=== PATIENT | male | born 1950 | race Caucasian/White ===

== ENCOUNTER → 2019-07-08 08:17 | Outpatient (BNVA) | payer MEDICARE, SELFPAY | PROVIDERS: Family Provider Nurse Practitioner Family; PCP Nurse Practitioner Family; Visit Provider Internal Medicine Hematology & Oncology | DX: C61 Malignant neoplasm of prostate (principal) | CPT/HCPCS: 80053; 84153; 84403 ==

== ENCOUNTER 2019-07-13 13:40 | Outpatient (CLI) | payer MEDICARE, SELFPAY ==
[2019-07-13] MEDS: lidocaine 1% INJ 20 mL INJECTION (14:42)
[2019-07-13] MEDS: goserelin acetate 10.8 mg Implant IM (14:55)
--- NOTE | 2019-07-13 16:11 | ONC FU_ITS ---
Dr. Thompson follow up note Patient: Jeffry Neff Unit #: [id number]: 1950 Dicatated By: Grace Thompson M.D.Date of Visit:Jul 13, 2019 Onc Med Follow-up/Prog Note History of Present Illness: Mr. 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 As per patient he was having problem with dysuria and recurrent urine tract infection eventually urinary retention for which he was evaluated by Dr. Matthews and patient underwent TURSP/biopsy and Foleys cath placement. He was started on Casodex 50 mg by mouth daily on 11/14/2017. Since then he is feeling better and still has Foleys cath. No history of hematuria, but recurrent urine tract infections and his last PSA on 11/07/2017 was 7.[address] scan of abdomen pelvis on 11/06/2017 which showed markedly enlarged prostate gland 7 x 6.4 cm no pelvic lymphadenopathy or bone destruction. Bone scan was done on 11/12/2017 showed no abnormality. Treated with neoadjuvant ADT with Zoladex/Casodex on 11/14/2017 concurrent radiation therapy was elevated on 02/11/2018 till 04/13/2018, now on adjuvant ADT. Casodex discontinued on 06/04/2018 Came for follow-up, denies any specific complaints except episode of jock itch responded well to [id number] antifungal. No fever or chills no nausea or vomiting no diarrhea constipation tolerating Zoladex well except occasionally hot flashes. Medications: Aspirin 1 Tablet (of 81 mg) Oral daily, Clopidogrel Bisulfate 1 Tablet (of 75 mg) Oral daily, MetFORMIN HCl 2 Tablet (of 500 mg) Oral daily, Metoprolol Tartrate 1 Tablet (of 50 mg) Oral b.i.d., Simvastatin 1 Tablet (of 40 mg) Oral daily Allergies: Naproxen and Sulfacetamide Sodium. Review of Systems: Constitutional - Appetite is good and weight is stable. No fever, chills. Patient is having hot flashes and occasional night sweats. Energy level is fair, ENMT - Positive for sinus congestion/drainage. No mouth sores. No sore throat or difficulty swallowing, Hematologic/Lymphatic - No abnormal bruising or bleeding, Respiratory - Some shortness of breath with exertion. Occasional cough. No pleuritic pain or hemoptysis, Cardiovascular - No angina pain. No palpitations, Gastrointestinal - No nausea or vomiting. No heartburn or acid reflux. No diarrhea, no constipation. No blood in the stool or black stools, Genitourinary (M) - No hematuria. No urinary frequency. No urgency or incontinence, Musculoskeletal - Positive for joint pain, Neurologic - No headache or dizziness. No numbness/paresthesias or other focal neurologic symptoms, Psychiatric - No anxiety or depression. No insomnia. Vital Signs: Vitals are not available for this patient. Performance Status: 0 - Fully active, able to carry on all predisease activities without restrictions. (ECOG) Physical Examination: ENMT - No oral exudates, ulcers, masses, thrush or mucositis. Oropharynx clear. Tongue normal, Respiratory - Lungs are clear to auscultation without rhonchi or wheezing, Cardiovascular - Regular rate and rhythm of heart, Abdomen - Non-tender, non-distended, Good bowel sounds. No guarding or rebound tenderness. No pulsatile masses, Extremities - no edema. Lab/Imaging: Test performed on Apr 13, 2019 12:28 Testosterone, Total 2.5 ng/dL PSA < 0.02 ng/mL Test performed on Apr 08, 2019 07:35 Sodium 137 mmol/L Potassium 4.5 mmol/L Chloride 97 mmol/L CO2 23 mmol/L Anion Gap 21.5 BUN 21 mg/dL Creatinine 1.0 mg/dL Cr Clearance (Est) 116.1200 mL/min eGFR 74.3 mL/min Glucose 302 mg/dl Calcium 8.9 mg/dL Protein, Total 6.2 g/dL Albumin 5.0 g/dL Globulin 1.2 gm/dL Bilirubin, Total 0.3 mg/dL ALT (SGPT) 17 U/L AST (SGOT) 12 U/L Alkaline Phosphatase 143 U/L Impression: Adenocarcinoma of the prostate status post TRUSP/biopsy on 11/07/2017, 9 out of 12 cores positive, [place] score 5+5, 100% involvement of right lateral mid, right lateral base, right apex, right mid and left mid, 90% involvement of right base, left lateral mid, 80% involvement of left base. PSA was 7.4 T2c NxMx Started on Casodex 50 mg by mouth daily On 11/14/2017 And Zoladex on 12/02/2017 then every 3 months , Concurrent Radiation therapy was added on 02/11/2018 till 04/13/2018. Now on adjuvant therapy with ADT, Casodex was discontinued on 06/04/2018 when his PSA was 0.01 Urinary retention s/p Lynn's cath , resolved Plan: Discussed with patient regarding his labs 07/08/2019, CMP within normal limit except glucose 231 and PSA less than 0.02 Clinically, patient doing well with no signs symptoms suggestive of recurrence/progression of disease, as follow-up lab shows PSA stable and still subzero. We'll continue with his next 3 monthly dose of Zoladex today and then he'll return to clinic in 3 months with PSA and for Zoladex patient is considering discontinuing Zoladex after 2 years therapy and he was started on Zoladex in November 2017 Signed By: Grace Thompson M.D. <<Signature on File>>
== END 2019-07-13 13:41 | disposition home or self-care (01) ==
LOC: ONCMED 13:42
PROVIDERS: Family Provider Nurse Practitioner Family; PCP Nurse Practitioner Family; Visit Provider Internal Medicine Hematology & Oncology
DX: C61 Malignant neoplasm of prostate (principal); Z79.818 Long term (current) use of other agents affecting estrogen receptors and estrogen levels; Z79.82 Long term (current) use of aspirin; Z79.02 Long term (current) use of antithrombotics/antiplatelets; Z87.440 Personal history of urinary (tract) infections; Z92.21 Personal history of antineoplastic chemotherapy; Z92.3 Personal history of irradiation
CPT/HCPCS: 96372; 96402; 99214; J2001; J9202

== ENCOUNTER → 2019-10-11 10:21 | Outpatient (BNVA) | payer MEDICARE, SELFPAY | PROVIDERS: Family Provider Nurse Practitioner Family; PCP Nurse Practitioner Family; Visit Provider Radiology Radiation Oncology | DX: C61 Malignant neoplasm of prostate (principal) | CPT/HCPCS: 84153 ==

== ENCOUNTER 2019-10-13 13:44 | Outpatient (CLI) | payer MEDICARE, SELFPAY ==
[2019-10-13] MEDS: lidocaine 1% INJ 20 mL INJECTION (14:20)
[2019-10-13] MEDS: goserelin acetate 10.8 mg Implant IM (14:20)
--- NOTE | 2019-10-13 15:33 | ONC FU_ITS ---
Dr. Thompson follow up note Patient: Jeffry Neff Unit #: [id number]: 1950 Dicatated By: Grace Thompson M.D.Date of Visit:Oct 13, 2019 Onc Med Follow-up/Prog Note History of Present Illness: Mr. Jeffry Neff, 69-year-old gentleman with history of elevated PSA, recently diagnosed with adenocarcinoma the prostate on 11/07/2017. As per patient he was having problem with dysuria and recurrent urine tract infection eventually urinary retention for which he was evaluated by Dr. Matthews and patient underwent TURSP/biopsy and Foleys cath placement. He was started on Casodex 50 mg by mouth daily on 11/14/2017. Since then he is feeling better and still has Foleys cath. No history of hematuria, but recurrent urine tract infections and his last PSA on 11/07/2017 was 7.[address] scan of abdomen pelvis on 11/06/2017 which showed markedly enlarged prostate gland 7 x 6.4 cm no pelvic lymphadenopathy or bone destruction. Bone scan was done on 11/12/2017 showed no abnormality. Treated with neoadjuvant ADT with Zoladex/Casodex on 11/14/2017 concurrent radiation therapy was elevated on 02/11/2018 till 04/13/2018, now on adjuvant ADT. Casodex discontinued on 06/04/2018 Came for follow-up, denies any specific complaint except generalized weakness and fatigue and frequent hot flashes and now with mood swings. But no fever chills no nausea or vomiting no diarrhea or constipation, no hematuria, no abdominal pain. Tolerating Zoladex reasonably well except above mentioned side effects Medications: Aspirin 1 Tablet (of 81 mg) Oral daily, Clopidogrel Bisulfate 1 Tablet (of 75 mg) Oral daily, MetFORMIN HCl 2 Tablet (of 500 mg) Oral daily, Metoprolol Tartrate 1 Tablet (of 50 mg) Oral b.i.d., Simvastatin 1 Tablet (of 40 mg) Oral daily Allergies: Naproxen and Sulfacetamide Sodium. Review of Systems: Constitutional - Appetite is good and weight is stable. No fever, chills. Patient is having hot flashes and occasional night sweats. Energy level is fair, ENMT - Positive for sinus congestion/drainage. No mouth sores. No sore throat or difficulty swallowing, Hematologic/Lymphatic - No abnormal bruising or bleeding, Respiratory - Some shortness of breath with exertion. Occasional cough. No pleuritic pain or hemoptysis, Cardiovascular - No angina pain. No palpitations, Gastrointestinal - No nausea or vomiting. No heartburn or acid reflux. No diarrhea, no constipation. No blood in the stool or black stools, Genitourinary (M) - No hematuria. No urinary frequency. No urgency or incontinence, Musculoskeletal - Positive for joint pain, Neurologic - No headache or dizziness. No numbness/paresthesias or other focal neurologic symptoms, Psychiatric - No anxiety or depression. No insomnia. Vital Signs: Performed on Oct 13, 2019 14:10 Height - 69.00 in Weight - 260.8 lbs (HIGH) BSA - 2.31 sq.m BMI - 38.51 (HIGH) Temperature - 97.9 F (LOW) Pulse - 72 /min Respiration - 18 /min BP - 147/78 mm(hg) (HIGH) O2 Sat - 97 % Pain - 0 Performance Status: 0 - Fully active, able to carry on all predisease activities without restrictions. (ECOG) Physical Examination: ENMT - No mouth sores, no thrush, no jaundice, Respiratory - Lungs are clear, Cardiovascular - Regular rate and rhythm of heart, Abdomen - Soft, bowel sounds present, nontender, Extremities - No visible edema or rash. Lab/Imaging: Test performed on Oct 11, 2019 13:48 PSA < 0.02 ng/mL Impression: Adenocarcinoma of the prostate status post TRUSP/biopsy on 11/07/2017, 9 out of 12 cores positive, [place] score 5+5, 100% involvement of right lateral mid, right lateral base, right apex, right mid and left mid, 90% involvement of right base, left lateral mid, 80% involvement of left base. PSA was 7.4 T2c NxMx Started on Casodex 50 mg by mouth daily On 11/14/2017 And Zoladex on 12/02/2017 then every 3 months , Concurrent Radiation therapy was added on 02/11/2018 till 04/13/2018. Now on adjuvant therapy with ADT, Casodex was discontinued on 06/04/2018 when his PSA was 0.01 Urinary retention s/p Lynn's cath , resolved Plan: Discussed with patient regarding his labs PSA is less than 0.2 Clinically, patient is doing well with no signs symptoms suggestive of recurrence of disease his PSA has been less than 2 over since last year. Patient is having significant side effects related to 3 monthly Zoladex, and now requesting to discontinue after today's dose. Patient has taken Zoladex for almost 2 years now. Considering related side effects and total duration of Zoladex therapy, at patient's request we will consider discontinue Zoladex after today's dose and then he will return to clinic in 6 months with CBC CMP and PSA. Signed By: Grace Thompson M.D. <<Signature on File>>
== END 2019-10-13 13:45 | disposition home or self-care (01) ==
LOC: ONCMED 13:46
PROVIDERS: Visit Provider Internal Medicine Hematology & Oncology
DX: C61 Malignant neoplasm of prostate (principal); R97.20 Elevated prostate specific antigen [PSA]; N40.1 Benign prostatic hyperplasia with lower urinary tract symptoms; R30.0 Dysuria; N39.0 Urinary tract infection, site not specified; E11.9 Type 2 diabetes mellitus without complications; E66.9 Obesity, unspecified; I10 Essential (primary) hypertension; I25.10 Atherosclerotic heart disease of native coronary artery without angina pectoris; Z95.5 Presence of coronary angioplasty implant and graft; Z79.818 Long term (current) use of other agents affecting estrogen receptors and estrogen levels
CPT/HCPCS: 96372; 96402; 99214; J2001; J9202

== ENCOUNTER → 2020-01-06 09:23 | Outpatient (BNVA) | payer MEDICARE, SELFPAY | PROVIDERS: PCP Urology; Visit Provider Urology | DX: R39.9 Unspecified symptoms and signs involving the genitourinary system (principal); C61 Malignant neoplasm of prostate; R23.2 Flushing; T50.905A Adverse effect of unspecified drugs, medicaments and biological substances, initial encounter; R33.9 Retention of urine, unspecified; N20.1 Calculus of ureter | CPT/HCPCS: 81001 ==

== ENCOUNTER → 2020-01-11 09:20 | Outpatient (BNVA) | payer MEDICARE, SELFPAY | PROVIDERS: PCP Urology; Visit Provider Nurse Practitioner Family | DX: E11.9 Type 2 diabetes mellitus without complications (principal); I10 Essential (primary) hypertension; E78.5 Hyperlipidemia, unspecified; H61.21 Impacted cerumen, right ear; C61 Malignant neoplasm of prostate; Z68.37 Body mass index [BMI] 37.0-37.9, adult; Z71.89 Other specified counseling | CPT/HCPCS: 80053; 80061; 82043; 83036; 83721; 85025; 87086 ==

== ENCOUNTER → 2020-04-12 09:00 | Outpatient (BNVA) | payer MEDICARE, SELFPAY | PROVIDERS: PCP Urology; Visit Provider Internal Medicine Hematology & Oncology | DX: C61 Malignant neoplasm of prostate (principal); E11.9 Type 2 diabetes mellitus without complications | CPT/HCPCS: 80053; 80061; 83036; 83721; 84153; 85025 ==

== ENCOUNTER 2020-04-14 08:45 | Outpatient (CLI) | payer MEDICARE, SELFPAY ==
--- NOTE | 2020-04-14 10:03 | ONC FU_ITS ---
Dr. Thompson follow up note Patient: Jeffry Neff Unit #: [id number]: 1950 Dicatated By: Grace Thompson M.D.Date of Visit:Apr 14, 2020 Onc Med Follow-up/Prog Note History of Present Illness: Mr. Jeffry Neff, 69-year-old gentleman with history of elevated PSA, recently diagnosed with adenocarcinoma the prostate on 11/07/2017. As per patient he was having problem with dysuria and recurrent urine tract infection eventually urinary retention for which he was evaluated by Dr. Matthews and patient underwent TURSP/biopsy and Foleys cath placement. He was started on Casodex 50 mg by mouth daily on 11/14/2017. Since then he is feeling better and still has Foleys cath. No history of hematuria, but recurrent urine tract infections and his last PSA on 11/07/2017 was 7.[address] scan of abdomen pelvis on 11/06/2017 which showed markedly enlarged prostate gland 7 x 6.4 cm no pelvic lymphadenopathy or bone destruction. Bone scan was done on 11/12/2017 showed no abnormality. Treated with neoadjuvant ADT with Zoladex/Casodex on 11/14/2017 concurrent radiation therapy was elevated on 02/11/2018 till 04/13/2018, now on adjuvant ADT. Casodex discontinued on 06/04/2018, Zoladex discontinued after last dose on October 13, 2019, at patient's request, because of related side effect like generalized weakness and fatigue and persistent hot flashes Came for follow-up, denies any specific complaints except occasionally hot flashes but much better since he is off of Zoladex, more energetic and overall feeling much better since he is off hormonal therapy. No fever chills, no nausea or vomiting, no diarrhea constipation, no dysuria, or melena or hematochezia, no abdominal pain, no new bony pains. Medications: Aspirin 1 Tablet (of 81 mg) Oral daily, Clopidogrel Bisulfate 1 Tablet (of 75 mg) Oral daily, MetFORMIN HCl 2 Tablet (of 500 mg) Oral daily, Metoprolol Tartrate 1 Tablet (of 50 mg) Oral b.i.d., Simvastatin 1 Tablet (of 40 mg) Oral daily Allergies: Naproxen and Sulfacetamide Sodium. Review of Systems: Constitutional - Appetite is good and weight is stable. No fever, chills. Patient is having hot flashes and occasional night sweats. Energy level is fair, ENMT - Positive for sinus congestion/drainage. No mouth sores. No sore throat or difficulty swallowing, Hematologic/Lymphatic - No abnormal bruising or bleeding, Respiratory - Some shortness of breath with exertion. Occasional cough. No pleuritic pain or hemoptysis, Cardiovascular - No angina pain. No palpitations, Gastrointestinal - No nausea or vomiting. No heartburn or acid reflux. No diarrhea, no constipation. No blood in the stool or black stools, Genitourinary (M) - No hematuria. No urinary frequency. No urgency or incontinence, Musculoskeletal - Positive for joint pain, Neurologic - No headache or dizziness. No numbness/paresthesias or other focal neurologic symptoms, Psychiatric - No anxiety or depression. No insomnia. Vital Signs: Performed on Apr 14, 2020 09:24 Height - 69.00 in Weight - 256.6 lbs (LOW) BSA - 2.30 sq.m BMI - 37.89 (HIGH) Temperature - 98.2 F (LOW) Pulse - 67 /min Respiration - 22 /min BP - 156/82 mm(hg) (HIGH) O2 Sat - 99 % Pain - 0 Performance Status: 0 - Fully active, able to carry on all predisease activities without restrictions. (ECOG) Physical Examination: ENMT - No mouth sores, no thrush, no jaundice, Respiratory - Lungs are clear to auscultation, Cardiovascular - Regular rate and rhythm of heart, Abdomen - Soft, bowel sounds present, no tenderness, Extremities - Trace edema. Lab/Imaging: Test performed on Apr 12, 2020 09:00 Cholesterol, Total 131 mg/dL Glucose 201 mg/dL BUN 13 mg/dL HDL Cholesterol 27 mg/dL Creatinine 1.0 mg/dL LDL Cholesterol 35 mg/dL Cr Clearance (Est) 114.78 mL/min Triglycerides 480 mg/dL Sodium 138 mmol/L Potassium 4.3 mmol/L Chloride 103 mmol/L CO2 25 mmol/L Calcium 9.4 mg/dL Protein, Total 6.0 g/dL Albumin 4.2 g/dL Globulin 1.8 g/dL Bilirubin, Total 0.2 mg/dL Alkaline Phosphatase 85 IU/L AST (SGOT) 15 IU/L ALT (SGPT) 20 IU/L Hemoglobin A1C 8.8 % WBC 5.2 10^9/L RBC 4.01 10^12/L HGB 12.5 g/dL HCT 36.6 % MCV 91.4 fl MCH 31.3 pg MCHC 34.2 g/dL RDW 12.9 % Platelet Count 238 10^9/L MPV 7.3 fL Neutrophils (Gran) 3.3 10^9/L Lymphocytes 1.5 10^9/L Monocytes 0.4 10^9/L Manual Lymphocytes 28.2 % Manual Monocytes 8.0 % PSA 0.006 ng/mL Impression: Adenocarcinoma of the prostate status post TRUSP/biopsy on 11/07/2017, 9 out of 12 cores positive, [place] score 5+5, 100% involvement of right lateral mid, right lateral base, right apex, right mid and left mid, 90% involvement of right base, left lateral mid, 80% involvement of left base. PSA was 7.4 T2c NxMx Started on Casodex 50 mg by mouth daily On 11/14/2017 And Zoladex on 12/02/2017 then every 3 months , Concurrent Radiation therapy was added on 02/11/2018 till 04/13/2018. adjuvant therapy with ADT, Casodex was discontinued on 06/04/2018 when his PSA was 0.01, Zoladex alone till October 13, 2019, At that time ,it was discontinued at patient's request because of persistent and progressive symptoms like hot flashes and generalized weakness and fatigue. Urinary retention s/p Lynn's cath , resolved Plan: Discussed with patient regarding his labs white blood count 5.2 hemoglobin 12.5 hematocrit 36.6 platelets 238,000 CMP within normal limit except glucose 292, at his PMDs request hyperlipidemia panel was added which showed triglycerides 480, normal being less than 150 and cholesterol within normal range PSA was 0.006 Clinically, patient is doing well with no new signs symptom suggestive of recurrence of disease, his overall side effect due to hormone therapy, improving since he is off Zoladex which was given last time on October 13, 2019. As per patient hot flashes are improving significantly and now tolerable, more energetic, and pleased to be off hormonal therapy. His follow-up labs shows PSA continue to improve and subzero. We will continue to monitor and then he will return to clinic in 6 months with PSA As far as high triglyceride level is concerned, patient will follow up with his primary care physician regarding management and also discussed about his elevated hemoglobin A1c and persistent hyperglycemia. Signed By: Grace Thompson M.D. <<Signature on File>>
== END 2020-04-14 08:46 | disposition home or self-care (01) ==
LOC: ONCMED 08:48
PROVIDERS: Visit Provider Internal Medicine Hematology & Oncology
DX: Z08 Encounter for follow-up examination after completed treatment for malignant neoplasm (principal); Z85.46 Personal history of malignant neoplasm of prostate; Z92.23 Personal history of estrogen therapy; E78.1 Pure hyperglyceridemia; R73.9 Hyperglycemia, unspecified
CPT/HCPCS: G0463

== ENCOUNTER → 2020-04-17 10:19 | Outpatient (BNVA) | payer MEDICARE, SELFPAY | PROVIDERS: Visit Provider Nurse Practitioner Family | DX: E78.5 Hyperlipidemia, unspecified (principal); I10 Essential (primary) hypertension; E11.9 Type 2 diabetes mellitus without complications; E66.01 Morbid (severe) obesity due to excess calories; Z68.37 Body mass index [BMI] 37.0-37.9, adult; I25.10 Atherosclerotic heart disease of native coronary artery without angina pectoris | CPT/HCPCS: 82043 ==

== ENCOUNTER → 2020-08-23 11:40 | Outpatient (BNVA) | payer MEDICARE, SELFPAY | PROVIDERS: PCP Nurse Practitioner Family; Visit Provider Nurse Practitioner Family | DX: I25.10 Atherosclerotic heart disease of native coronary artery without angina pectoris (principal); E78.5 Hyperlipidemia, unspecified; E66.01 Morbid (severe) obesity due to excess calories; E11.9 Type 2 diabetes mellitus without complications; I10 Essential (primary) hypertension; Z68.37 Body mass index [BMI] 37.0-37.9, adult; Z71.89 Other specified counseling | CPT/HCPCS: 80053; 80061; 83036; 83721; 85025 ==

== ENCOUNTER → 2020-10-30 08:48 | Outpatient (BNVA) | payer MEDICARE, SELFPAY | PROVIDERS: PCP Nurse Practitioner Family; Visit Provider Internal Medicine Hematology & Oncology | DX: C61 Malignant neoplasm of prostate (principal) | CPT/HCPCS: 84153 ==

== ENCOUNTER 2020-11-01 15:16 | Outpatient (CLI) | payer MEDICARE, SELFPAY ==
--- NOTE | 2020-11-01 16:43 | ONC FU_ITS ---
Dr. Thompson follow up note Patient: Jeffry Neff Unit #: [id number]: 1950 Dicatated By: Grace Thompson M.D.Date of Visit:Nov 01, 2020 Onc Med Follow-up/Prog Note History of Present Illness: Mr. Jeffry Neff, 70-year-old gentleman with history of elevated PSA, recently diagnosed with adenocarcinoma the prostate on 11/07/2017. As per patient he was having problem with dysuria and recurrent urine tract infection eventually urinary retention for which he was evaluated by Dr. Matthews and patient underwent TURSP/biopsy and Foleys cath placement. He was started on Casodex 50 mg by mouth daily on 11/14/2017. Since then he is feeling better and still has Foleys cath. No history of hematuria, but recurrent urine tract infections and his last PSA on 11/07/2017 was 7.[address] scan of abdomen pelvis on 11/06/2017 which showed markedly enlarged prostate gland 7 x 6.4 cm no pelvic lymphadenopathy or bone destruction. Bone scan was done on 11/12/2017 showed no abnormality. Treated with neoadjuvant ADT with Zoladex/Casodex on 11/14/2017 concurrent radiation therapy was elevated on 02/11/2018 till 04/13/2018, now on adjuvant ADT. Casodex discontinued on 06/04/2018, Zoladex discontinued after last dose on October 13, 2019, at patient's request, because of related side effect like generalized weakness and fatigue and persistent hot flashes Came for follow-up, denies any specific complaints, no fever chills, no nausea or vomiting, no diarrhea or constipation, no melena or hematochezia, no dysuria or hematuria, no new bony pains, overall feeling much better with good quality of life Medications: Aspirin 1 Tablet (of 81 mg) Oral daily, Clopidogrel Bisulfate 1 Tablet (of 75 mg) Oral daily, MetFORMIN HCl 2 Tablet (of 500 mg) Oral daily, Metoprolol Tartrate 1 Tablet (of 50 mg) Oral b.i.d., Simvastatin 1 Tablet (of 40 mg) Oral daily Allergies: Naproxen and Sulfacetamide Sodium. Review of Systems: Review of Systems is not available for this patient. Vital Signs: Performed on Nov 01, 2020 15:49 Height - 69.00 in Weight - 247.6 lbs (LOW) BSA - 2.26 sq.m BMI - 36.56 (HIGH) Temperature - 97.6 F (LOW) Pulse - 77 /min Respiration - 18 /min BP - 147/74 mm(hg) (HIGH) O2 Sat - 95 % (LOW) Pain - 0 Fatigue - 0 Performance Status: 0 - Fully active, able to carry on all predisease activities without restrictions. (ECOG) Physical Examination: ENMT - No mouth sores, no thrush, no jaundice, Respiratory - Lungs are clear to auscultation, Cardiovascular - Regular rate and rhythm of heart, Abdomen - Soft, bowel sounds present, Extremities - No visible edema. Lab/Imaging: Test performed on Oct 30, 2020 08:48 PSA 0.006 ng/mL Impression: Adenocarcinoma of the prostate status post TRUSP/biopsy on 11/07/2017, 9 out of 12 cores positive, [place] score 5+5, 100% involvement of right lateral mid, right lateral base, right apex, right mid and left mid, 90% involvement of right base, left lateral mid, 80% involvement of left base. PSA was 7.4 T2c NxMx Started on Casodex 50 mg by mouth daily On 11/14/2017 And Zoladex on 12/02/2017 then every 3 months , Concurrent Radiation therapy was added on 02/11/2018 till 04/13/2018. adjuvant therapy with ADT, Casodex was discontinued on 06/04/2018 when his PSA was 0.01, Zoladex alone till October 13, 2019, At that time ,it was discontinued at patient's request because of persistent and progressive symptoms like hot flashes and generalized weakness and fatigue. Urinary retention s/p Lynn's cath , resolved Plan: Discussed with patient regarding his PSA which is 0.006 compared to 0.006 in April 2020 Clinically, patient doing well with no signs symptom suggestive of recurrence or disease progression as far as prostate cancer is concerned, his PSA is still subzero and stable. Patient is enjoying his quality of life and following with his PMD and Dr. Matthews on regular basis, return to clinic in 6 months with PSA Signed By: Grace Thompson M.D. <<Signature on File>>
== END 2020-11-01 15:17 | disposition home or self-care (01) ==
LOC: ONCMED 15:23
PROVIDERS: PCP Nurse Practitioner Family; Visit Provider Internal Medicine Hematology & Oncology
DX: Z08 Encounter for follow-up examination after completed treatment for malignant neoplasm (principal); Z85.46 Personal history of malignant neoplasm of prostate; Z92.3 Personal history of irradiation
CPT/HCPCS: 99214

== ENCOUNTER → 2020-11-22 09:33 | Outpatient (BNVA) | payer MEDICARE, SELFPAY | PROVIDERS: PCP Nurse Practitioner Family; Visit Provider Nurse Practitioner Family | DX: E11.9 Type 2 diabetes mellitus without complications (principal); E78.5 Hyperlipidemia, unspecified; C61 Malignant neoplasm of prostate | CPT/HCPCS: 80053; 80061; 83036; 83721; 85025 ==

== ENCOUNTER → 2021-01-11 09:27 | Outpatient (BNVA) | payer MEDICARE, SELFPAY | PROVIDERS: PCP Nurse Practitioner Family; Visit Provider Urology | DX: R39.9 Unspecified symptoms and signs involving the genitourinary system (principal); C61 Malignant neoplasm of prostate | CPT/HCPCS: 81003 ==

== ENCOUNTER → 2021-05-14 11:01 | Outpatient (BNVA) | payer MEDICARE, SELFPAY | PROVIDERS: PCP Nurse Practitioner Family; Visit Provider Nurse Practitioner Family | DX: E78.5 Hyperlipidemia, unspecified (principal); E11.9 Type 2 diabetes mellitus without complications; I10 Essential (primary) hypertension; I25.10 Atherosclerotic heart disease of native coronary artery without angina pectoris; Z68.35 Body mass index [BMI] 35.0-35.9, adult | CPT/HCPCS: 80053; 80061; 82043; 82306; 83036; 83721; 84443; 85025 ==

== ENCOUNTER → 2021-07-09 10:59 | Outpatient (BNVA) | payer MEDICARE, SELFPAY | PROVIDERS: PCP Nurse Practitioner Family; Visit Provider Nurse Practitioner Family | DX: C61 Malignant neoplasm of prostate (principal) | CPT/HCPCS: 84153 ==

== ENCOUNTER → 2021-07-12 09:30 | Outpatient (BNVA) | payer OTHER, SELFPAY | PROVIDERS: PCP Nurse Practitioner Family; Visit Provider Urology | DX: C61 Malignant neoplasm of prostate (principal); R39.9 Unspecified symptoms and signs involving the genitourinary system | CPT/HCPCS: 81003 ==

== ENCOUNTER → 2021-08-06 09:39 | Outpatient (BNVA) | payer OTHER, SELFPAY | PROVIDERS: PCP Nurse Practitioner Family; Visit Provider Nurse Practitioner Family | DX: I10 Essential (primary) hypertension (principal); E55.9 Vitamin D deficiency, unspecified; E11.9 Type 2 diabetes mellitus without complications; E78.5 Hyperlipidemia, unspecified; C61 Malignant neoplasm of prostate; I25.10 Atherosclerotic heart disease of native coronary artery without angina pectoris | CPT/HCPCS: 80053; 80061; 82306; 83036; 83721; 84443; 85025 ==

== ENCOUNTER 2022-01-14 12:48 | Outpatient (CLI) | payer MEDICARE, SELFPAY ==
[2022-01-14 13:36] LABS: Prostate Specific Antigen < 0.014 ng/mL (0-4)
== END 2022-01-14 12:49 | disposition home or self-care (01) ==
LOC: LAB 12:49
PROVIDERS: PCP Nurse Practitioner Family; Visit Provider Urology
DX: C61 Malignant neoplasm of prostate (principal)
CPT/HCPCS: 36415; 84153

== ENCOUNTER → 2022-01-31 07:39 | Outpatient (BNVA) | payer OTHER, SELFPAY | PROVIDERS: PCP Nurse Practitioner Family; Visit Provider Urology | DX: C61 Malignant neoplasm of prostate (principal) | CPT/HCPCS: 81003 ==

== ENCOUNTER → 2022-02-12 10:10 | Outpatient (BNVA) | payer OTHER, SELFPAY | PROVIDERS: PCP Nurse Practitioner Family; Visit Provider Nurse Practitioner Family | DX: E11.9 Type 2 diabetes mellitus without complications (principal); I10 Essential (primary) hypertension; E78.5 Hyperlipidemia, unspecified; E55.9 Vitamin D deficiency, unspecified; I25.10 Atherosclerotic heart disease of native coronary artery without angina pectoris; L98.9 Disorder of the skin and subcutaneous tissue, unspecified | CPT/HCPCS: 80053; 80061; 82306; 83036; 83721; 85025 ==

== ENCOUNTER → 2022-07-10 09:21 | Outpatient (BNVA) | payer OTHER, SELFPAY | PROVIDERS: PCP Nurse Practitioner Family; Visit Provider Urology | DX: I10 Essential (primary) hypertension (principal); E11.9 Type 2 diabetes mellitus without complications; E78.5 Hyperlipidemia, unspecified; E55.9 Vitamin D deficiency, unspecified | CPT/HCPCS: 80053; 80061; 82043; 82306; 83036; 83721; 84153; 84443; 85025 ==

== ENCOUNTER → 2022-07-18 08:24 | Outpatient (BNVA) | payer OTHER, SELFPAY | PROVIDERS: PCP Nurse Practitioner Family; Visit Provider Urology | DX: R39.9 Unspecified symptoms and signs involving the genitourinary system (principal) | CPT/HCPCS: 81003 ==

== ENCOUNTER → 2023-03-10 11:40 | Outpatient (BNVA) | payer OTHER, SELFPAY | PROVIDERS: PCP Nurse Practitioner Family; Visit Provider Nurse Practitioner Family | DX: E11.9 Type 2 diabetes mellitus without complications (principal); E55.9 Vitamin D deficiency, unspecified; C61 Malignant neoplasm of prostate; E78.5 Hyperlipidemia, unspecified | CPT/HCPCS: 80053; 80061; 82306; 82607; 83036; 83721; 84153; 84443; 85025 ==

== ENCOUNTER → 2023-10-21 09:07 | Outpatient (BNVA) | payer BC, SELFPAY | PROVIDERS: PCP Nurse Practitioner Family; Visit Provider Nurse Practitioner Family | DX: E11.9 Type 2 diabetes mellitus without complications (principal); C61 Malignant neoplasm of prostate; R23.2 Flushing; E55.9 Vitamin D deficiency, unspecified | CPT/HCPCS: 80053; 80061; 82306; 82607; 83036; 83721; 83735; 84153; 84403; 84443; 85025 ==

== ENCOUNTER → 2023-11-20 09:55 | Outpatient (BNVA) | payer BC, SELFPAY | PROVIDERS: PCP Nurse Practitioner Family; Visit Provider Nurse Practitioner Family | DX: R30.0 Dysuria (principal) | CPT/HCPCS: 81003; 87086 ==

== ENCOUNTER → 2024-02-10 12:52 | Outpatient (BNVA) | payer BC, SELFPAY | PROVIDERS: PCP Nurse Practitioner Family; Visit Provider Nurse Practitioner Family | DX: E11.9 Type 2 diabetes mellitus without complications (principal); E55.9 Vitamin D deficiency, unspecified | CPT/HCPCS: 80053; 80061; 82306; 82607; 83036; 83721; 83735; 84443; 85025 ==

== ENCOUNTER → 2024-05-21 10:48 | Outpatient (BNVA) | payer BC, SELFPAY | PROVIDERS: PCP Nurse Practitioner Family; Visit Provider Nurse Practitioner Family | DX: E11.9 Type 2 diabetes mellitus without complications | CPT/HCPCS: 80053; 80061; 81000; 82306; 82607; 83036; 83721; 84153; 84443; 85025 ==

== ENCOUNTER → 2024-06-17 09:22 | Outpatient (BNVA) | payer BC, SELFPAY | PROVIDERS: Family Provider Nurse Practitioner Family; PCP Nurse Practitioner Family; Visit Provider Nurse Practitioner Family | DX: R30.0 Dysuria (principal) | CPT/HCPCS: 81003; 87086 ==

== ENCOUNTER → 2024-06-29 08:22 | Outpatient (BNVA) | payer BC, SELFPAY | PROVIDERS: Family Provider Nurse Practitioner Family; PCP Nurse Practitioner Family; Visit Provider Nurse Practitioner Family | DX: R39.9 Unspecified symptoms and signs involving the genitourinary system (principal) | CPT/HCPCS: 81003 ==

== ENCOUNTER → 2024-12-01 12:23 | Outpatient (BNVA) | payer BC, SELFPAY | PROVIDERS: Family Provider Nurse Practitioner Family; PCP Nurse Practitioner Family; Visit Provider Nurse Practitioner Family | DX: I25.10 Atherosclerotic heart disease of native coronary artery without angina pectoris (principal); I10 Essential (primary) hypertension; E11.9 Type 2 diabetes mellitus without complications; E78.5 Hyperlipidemia, unspecified | CPT/HCPCS: 80053; 80061; 82306; 82607; 83036; 83721; 85025 ==

== ENCOUNTER → 2024-12-28 11:20 | Outpatient (BNVA) | payer BC, SELFPAY | PROVIDERS: Family Provider Nurse Practitioner Family; PCP Nurse Practitioner Family; Visit Provider Nurse Practitioner Family | DX: C61 Malignant neoplasm of prostate (principal) | CPT/HCPCS: 84153 ==

== ENCOUNTER → 2025-03-14 11:06 | Outpatient (BNVA) | payer BC, SELFPAY | PROVIDERS: Family Provider Nurse Practitioner Family; PCP Nurse Practitioner Family; Visit Provider Nurse Practitioner Family | DX: E11.9 Type 2 diabetes mellitus without complications (principal); R10.32 Left lower quadrant pain; R10.A0 Flank pain, unspecified side | CPT/HCPCS: 80053; 80061; 81000; 82043; 83036; 83721; 85025 ==